=== PATIENT | male | born 1980 | race Caucasian/White ===

== ENCOUNTER 2017-07-04 08:16 | Emergency (ER) | payer SELFPAY ==
[2017-07-04 08:22] VITALS: BP 154/100; PULSE 84; RESP 16; TEMP 98.1; O2SAT 98
--- NOTE | 2017-07-04 08:29 | EDPHY ---
H & P Stated Complaint: L upper back tightness x5 days after trip from [facility]; increases w/movement Time Seen by Provider: 07/04/17 08:28 - Personal History Current Tetanus Diphtheria and Acellular Pertussis (TDAP): Unsure - Medical/Surgical History Other PMH: healthy - Social History Smoking Status: Never smoked Constitutional: Initial Vital Signs Temperature (C) 36.7 C 07/04/17 08:17 Heart Rate 84 07/04/17 08:17 Respiratory Rate 16 07/04/17 08:17 Blood Pressure 154/100 H 07/04/17 08:17 O2 Sat (%) 98 07/04/17 08:17 O2 Delivery Mode Room Air Allergies/Adverse Reactions: No Known Allergies Allergy (Unverified 07/04/17 08:22) Home Medications: Medication Instructions Recorded Cyclobenzaprine [Flexeril 10 MG 10 mg PO TID PRN #15 tab 07/04/17 (*)] Ibuprofen [Motrin] 800 mg PO Q8 #20 tab 07/04/17 Lidocaine [Lidoderm] 1 each TP BID #10 adh..patch 07/04/17 oxyCODONE IR [Oxycodone Ir (*)] 5 - 10 mg PO Q6 PRN #20 tab 07/04/17 Medical Decision Making ED Course/Re-evaluation: CHIEF COMPLAINT: Neck and back pain HISTORY OF PRESENT ILLNESS: This patient is a 36 year old male complaining of severe neck and back pain onset Sunday, four days ago. He recently flew from [facility] for a business trip, and arrived Sunday. His discomfort began shortly after arrival. He rates his discomfort at 8/10 severity. The pain radiates to his left arm, particularly in the morning. He denies any numbness or weakness in his extremities. He denies any recent trauma to his head, neck, or back. He plans to return to [facility] this Sunday, and his primary concern today is pain relief. He denies chest pain, shortness of breath, headache, leg pain or swelling, or other associated symptoms. REVIEW OF SYSTEMS: A 10 point review of systems was performed and is negative with the exception of the elements mentioned in the history of present illness. PHYSICAL EXAM: HR, BP, O2 Sat, RR. Temp noted General Appearance: Alert, well hydrated, appropriate, and non-toxic appearing. Head: Atraumatic without scalp tenderness or obvious injury Eyes: Pupils equal, round, reactive to light and accommodation, EOMI, no trauma , no injection. Throat: There is no erythema or exudates, no lesions, normal tonsils, mucus membranes moist. Neck: Supple, tenderness along base, no lymphadenopathy. Respiratory: No retractions, no distress, no wheezes, and no accessory muscle use. Lungs are clear to auscultation bilaterally. Cardiovascular: Regular rate and rhythm. Bilateral carotid pulses intact. Good capillary refill all extremities. Gastrointestinal: Abdomen is soft, nontender, non-distended. Musculoskeletal: Tenderness along base of neck, left trapezius, and levator scapula area with radiation down his left arm. Normal active ROM of all extremities, atraumatic. Neurological: Alert, appropriate, and interactive. The patient has normal DTRs and non-focal cranial nerves, motor, sensory, and cerebellar exam. Skin: No rashes, good turgor, no nodules on palpation. Past medical history: Denies Past surgical history: Noncontributory. Family history: Noncontributory. Social history: Lives in [facility]. Visiting for a business trip. Single. DIFFERENTIAL DIAGNOSIS: The differential diagnosis for the patient's back pain included but was not limited to musculoskeletal pain, epidural abscess, herniated disk, spinal fracture, and intra-abdominal causes including urinary system. MEDICAL DECISION MAKIN36 year old male presents with neck and upper back pain onset Sunday, four days ago. Physical exam reveals tenderness along base of neck, left trapezius, and levator scapula area with radiation down his left arm. The patient denies any recent trauma, so plain x-ray is not warranted at this time. Given the patient's presentation, I am suspicious for C7-T1 radiculopathy vs. musculoskeletal pain. The patient has no sensory or motor deficits. He is afebrile, so I do not suspect meningitis. His pain is clearly left-sided. Plan to discharge home in good condition with prescriptions for ibuprofen, oxycodone, and Flexeril for symptom relief. Discussed with the patient that if his pain persists there is a potential for disc herniation and nerve impingement and he should follow up with his physician for further evaluation including MRI in [place] when he returns there Sunday. The patient requests a Lidocaine patch as well, which I will provide. The patient is comfortable with this plan. Departure - Departure Disposition: Home, Routine, Self-Care Clinical Impression: Neck pain Back pain Qualifiers: Back pain location: thoracic back pain Chronicity: acute Back pain laterality: bilateral Qualified Code(s): M54.6 - Pain in thoracic spine Condition: Good Instructions: Back Pain (ED), Neck Pain (ED) Additional Instructions: 1. Take Ibuprofen as prescribed as needed for pain. Take Oxycodone IR as prescribed as needed for severe pain. Take Flexeril as prescribed. You may take all three of these together. The oxycodone and Flexeril may make you drowsy. Take Ibuprofen only if you need to avoid drowsiness. 2. Apply Lidocaine patch as prescribed for pain relief. 3. Follow up with your physician in [place] for symptoms unresolved. As we discussed, you may need further evaluation including MRI to rule out any acute processes. 4. Return to the emergency department for severe pain, fever, numbness or weakness in your arms, change in location or nature of pain or other concerns. Referrals: Ct Nair MD [Medical Doctor] - As per Instructions Prescriptions: Cyclobenzaprine [Flexeril 10 MG (*)] 10 mg PO TID PRN #15 tab PRN Reason: Spasms Ibuprofen [Motrin] 800 mg PO Q8 #20 tab Lidocaine [Lidoderm] 1 each TP BID #10 adh..patch oxyCODONE IR [Oxycodone Ir (*)] 5 - 10 mg PO Q6 PRN #20 tab PRN Reason: Pain, Severe Report Scribed for: Calin Ariza Report Scribed by: Ronna Haney Date of Report: 07/04/17 Time of Report: 09:20
== END 2017-07-04 08:58 | disposition home or self-care (01) ==
DX: M54.2 Cervicalgia (principal); M54.6 Pain in thoracic spine